=== PATIENT | female | born 1975 | race Caucasian/White ===

== ENCOUNTER 2016-07-29 10:31 | Emergency (ER) | payer MEDICAID, OTHER ==
[~2016-07-29] VITALS: Ht 157.5 cm; Wt 59.0 kg
[2016-07-29 10:36] VITALS: Ht 157.5 cm; Wt 59.0 kg
[2016-07-29 11:38] LABS: ADD SCAN DIFF NO
[2016-07-29 11:39] LABS: BASOPHILS % 0.4 % (0.0-2.0); EOSINOPHILS # 0.2 10^3/ul (0.0-0.5); EOSINOPHILS % 2.8 % (0.0-7.0); HEMATOCRIT 41.5 % (37.0-47.0); HEMOGLOBIN 13.8 g/dl (12.0-16.0); LYMPHOCYTES # 1.8 10^3/ul (0.8-2.9); LYMPHOCYTES % 24.1 % (15.0-51.0); MEAN CORPUSCULAR HEMOGLOBIN 27.9 pg (29.0-33.0); MEAN CORPUSCULAR HGB CONC 33.3 g/dl (32.0-37.0); MEAN CORPUSCULAR VOLUME 83.8 fl (82.0-101.0); MEAN PLATELET VOLUME 9.8 fl (7.4-10.4); MONOCYTE # 0.3 10^3/ul (0.3-0.9); MONOCYTES % 4.6 % (0.0-11.0); NEUTROPHILS % 67.8 % (39.0-77.0); PLATELET COUNT 227 10^3/UL (140-415); RED BLOOD COUNT 4.95 10^6/ul (4.20-5.40); RED CELL DISTRIBUTION WIDTH 13.2 % (11.5-14.5); WHITE BLOOD COUNT 7.4 10^3/ul (4.8-10.8)
[2016-07-29 11:49] LABS: ADD UMIC YES; URINE BILIRUBIN (Dip) NEGATIVE (NEGATIVE); URINE BLOOD (Dip) 2+ (NEGATIVE); URINE COLOR LT. YELLOW (YELLOW); URINE GLUCOSE (Dip) NEGATIVE (NEGATIVE); URINE KETONES (Dip) NEGATIVE (NEGATIVE); URINE LEUKOCYTE ESTERASE (Dip) NEGATIVE (NEGATIVE); URINE NITRITE (Dip) NEGATIVE (NEGATIVE); URINE TOTAL PROTEIN (Dip) NEGATIVE (NEGATIVE); URINE UROBILINOGEN (Dip) 0.2 E.U./dL (0.1-1.0)
[2016-07-29 12:06] LABS: SQUAMOUS EPITHELIAL CELL,UR OCCASIONAL; URINE RBCS 0-2 /HPF (0)
--- NOTE | 2016-07-29 12:28 | RADRPT ---
PROCEDURE: US OB. CLINICAL INDICATION: Vaginal bleeding in . TECHNIQUE: Transabdominal and endovaginal imaging of the uterus is available for review COMPARISON: None available FINDINGS: No intrauterine is identified. The endometrial stripe is homogeneous and measures 7.4 mm in thickness. There is trace free fluid within the lower uterine segment. The uterus is otherwise un remarkable. The ovaries are not visualized. No adnexal mass is identified. No free fluid is noted within the pelvis. IMPRESSION: No intrauterine identified. There are no adnexal masses. Small free fluid is noted withi n the pelvis. Correlation with serial beta HCGs and repeat pelvic ultrasound as clinically indicate d, is recommended, as ectopic is not excluded on this examination. RPTAT: HH .Lakeshia Roberts MD, Date Time Electronically viewed and signed by .Lakeshia Roberts MD, on 07/29/2016 12:28 .G/
--- NOTE | 2016-07-29 12:44 | ERD ---
ER Documentation Chief Complaint Date/Time DATE: 07/29/16 TIME: 12:44 Chief Complaint VAGINAL BLEEDING,7 WEEKS ,SLIGHT PELVIC PAIN HPI This is a 41-year-old female A3 (2 miscarriages and 1 elective ) presents to the emergency department stating that she thinks she is about 7 weeks complaining of light vaginal bleeding for the past 6 days. Patient denies any pelvic pain at this moment she states that she does have mild cramping earlier. Patient states that she checked 2 days ago with a urine test is positive. She thinks she is 7 weeks since her last menstrual period was June 13, 2016 Patient denies any nausea, vomiting, diarrhea, fevers. Patient states that she has not been using pads since it is very light ROS All systems reviewed and are negative except as per history of present illness. Allergies Allergies: Coded Allergies: No Known Allergy (Unverified , 07/29/16) PMhx/Soc History of Surgery: No Anesthesia Reaction: No Hx Neurological Disorder: No Hx Respiratory Disorders: No Hx Cardiac Disorders: No Hx Psychiatric Problems: No Hx Miscellaneous Medical Probl: Yes (MISCARRIAGE X 2 ) Hx Alcohol Use: No Hx Substance Use: No Hx Tobacco Use: No Smoking Status: Never smoker Physical Exam Vitals Vital Signs Date Time Temp Pulse Resp B/P Pulse Ox O2 Delivery O2 Flow Rate FiO2 07/29/16 13:01 98.5 71 18 128/68 99 Room Air 07/29/16 10:36 99.1 115 18 141/80 98 Physical Exam General: well-developed/well-nourished, in no apparent distress, non-toxic appearing HENT: NC/AT, bilateral tympanic membrane is normal with good cone of light, nares patent, oropharynx clear without exudates Eyes: Conjunctiva normal, PERRLA, EOMI Neck: Supple, no lymphadenopathy Pulm: CTA bilaterally, no rales, rhonchi, or wheezing heard CV: Normal S1S2 GI: Soft, non-distended, normal bowel sounds, non-tender, negative rosvings, negative barboza's Back: No midline tenderness, no masses, No CVAT Ext: No clubbing, cyanosis, or edema Neuro: Alert and Orientated, gait normal Skin: Intact, normal turgor Psych: Normal mood and mentation Result Diagram: 07/29/16 1130 Results 24 hrs Laboratory Tests Test 07/29/16 11:20 07/29/16 11:30 Urine Color LT. YELLOW Urine Clarity CLEAR Urine pH 5.5 Urine Specific Bowie <=1.005 Urine Ketones NEGATIVE Urine Nitrite NEGATIVE Urine Bilirubin NEGATIVE Urine Urobilinogen 0.2 E.U./dL Urine Leukocyte Esterase NEGATIVE Urine Microscopic RBC 0-2/HPF Urine Microscopic WBC NONE SEEN/HPF Urine Squamous Epithelial Cells OCCASIONAL Urine Hemoglobin 2+ Urine Glucose NEGATIVE% Urine Total Protein NEGATIVE White Blood Count 7.410^3/ul Red Blood Count 4.9510^6/ul Hemoglobin 13.8g/dl Hematocrit 41.5% Mean Corpuscular Volume 83.8fl Mean Corpuscular Hemoglobin 27.9pg Mean Corpuscular Hemoglobin Concent 33.3g/dl Red Cell Distribution Width 13.2% Platelet Count 76430^3/UL Mean Platelet Volume 9.8fl Neutrophils % 67.8% Lymphocytes % 24.1% Monocytes % 4.6% Eosinophils % 2.8% Basophils % 0.4% Nucleated Red Blood Cells % 0.0/100WBC Neutrophils # 5.010^3/ul Lymphocytes # 1.810^3/ul Monocytes # 0.310^3/ul Eosinophils # 0.210^3/ul Basophils # 0.010^3/ul Nucleated Red Blood Cells # 0.010^3/ul Beta HCG, Quantitative 356.4mIU/ml Procedures/MDM This is a 41-year-old female A3 (2 miscarriages and 1 elective ) presents to the emergency department stating that she thinks she is about 7 weeks complaining of light vaginal bleeding for the past 6 days. Patient states that she checked 2 days ago with a urine test is positive. She thinks she is 7 weeks since her last menstrual period was June 13, 2016. Lab work was drawn. CBC did not show any evidence of leukocytosis or anemia. UA did not show any evidence of urinary tract infection. Beta hC.4 OB ultrasound: No intrauterine identified. There are no adnexal masses. Small free fluid is noted within the pelvis. Correlation with serial beta HCGs and repeat pelvic ultrasound as clinically indicated, is recommended, as ectopic is not excluded on this examination. Differentials include but not limited to early versus failed versus ectopic versus other. Patient does not have a doctor or an OVEN OPERATOR therefore I have discussed with patient to return in 2 days for repeat ultrasound and beta-hCG levels. Discussed return to the ER for any worsening symptoms. Patient hemodynamically stable for discharge. Departure Diagnosis: Primary Impression: Vaginal bleeding in patient at less than 20 weeks ges... Condition: Stable Patient Instructions: Bleeding During Early Referrals: NO PRIMARY,CARE PHYSICIAN (PCP) Additional Instructions: Return to this facility in 2 DAYS for a follow-up exam.Return sooner if your condition worsens. Return to this facility if you are not improving as expected. CHENCHO HARRIS PA-C Jul 29, 2016 12:44
[2016-07-29 13:01] VITALS: BP 128/68; PULSE 71; RESP 18; TEMP 98.5
== END 2016-07-29 13:02 | disposition home or self-care (01) ==
LOC: FTE 10:31
DX: O20.9 Hemorrhage in early pregnancy, unspecified (principal); R10.2 Pelvic and perineal pain; Z3A.01 Less than 8 weeks gestation of pregnancy
CPT/HCPCS: 36415; 76801; 76817; 81001; 81003; 84702; 85025; 86900; 86901; 87086

== ENCOUNTER 2018-09-23 11:59 | Emergency (ER) | payer MEDICAID, OTHER ==
[~2018-09-23] VITALS: Ht 180.3 cm; Wt 61.6 kg
[2018-09-23 12:19] VITALS: BP 124/72; PULSE 133; RESP 18; Ht 180.3 cm; Wt 61.6 kg
[2018-09-23] MEDS ORDERED: AMOX500C2 PO (13:13)
[2018-09-23] MEDS ORDERED: IBUP-1542 PO (13:13)
[2018-09-23] MEDS ORDERED: IBUPROFEN 800 MG TAB PO ONE (13:30)
--- NOTE | 2018-09-23 13:47 | ERD ---
ER Documentation Chief Complaint Chief Complaint sore throat headache x 3 days HPI Patient is a 43-year-old female with no medical problems who presents with a sore throat. She also had bilateral ear pain. She had headache. This is been there for the past 3 days. She tried Tylenol. She has pain with swallowing. She denies cough. She has had no recent antibiotics. She has not had a period in 2 months and is requesting a regnancy test. Her primary doctor is Dr. Aguilar. ROS All systems reviewed and are negative except as per history of present illness. Medications Home Meds Active Scripts Ibuprofen* (Motrin*) 600 Mg Tab, 600 MG PO Q6H PRN for PAIN AND OR ELEVATED TEMP, #30 TAB Prov:MICKY PLUNKETT MD 09/23/18 Amoxicillin* (Amoxicillin*) 500 Mg Cap, 500 MG PO TID for 7 Days, CAP Prov:MICKY PLUNKETT MD 09/23/18 Allergies Allergies: Coded Allergies: No Known Allergy (Unverified , 07/29/16) PMhx/Soc Medical and Surgical Hx: pt denies Medical Hx, pt denies Surgical Hx History of Surgery: No Anesthesia Reaction: No Hx Neurological Disorder: No Hx Respiratory Disorders: No Hx Cardiac Disorders: No Hx Psychiatric Problems: No Hx Miscellaneous Medical Probl: Yes (MISCARRIAGE X 2 ) Hx Alcohol Use: No Hx Substance Use: No Hx Tobacco Use: No Smoking Status: Never smoker FmHx Family History: No diabetes Physical Exam Vitals Vital Signs Date Temp Pulse Resp B/P (MAP) Pulse Ox O2 O2 Flow FiO2 Time Delivery Rate 09/23/18 38.8 13:22 09/23/18 101.8 133 18 124/72 95 12:19 (89) Physical Exam Const: No acute distress Head: Atraumatic Eyes: Normal Conjunctiva ENT: Erythema to the bilateral tonsils with pus, no stridor, no peritonsillar abscess Neck: Full range of motion. No meningismus. Resp: Clear to auscultation bilaterally Cardio: Regular rate and rhythm, no murmurs Abd: Soft, non tender, non distended. Normal bowel sounds Skin: No petechiae or rashes Back: No midline or flank tenderness Ext: No cyanosis, or edema Neur: Awake and alert Psych: Normal Mood and Affect Results 24 hrs Laboratory Tests Test 09/23/18 13:25 09/23/18 13:28 POC Beta HCG, Qualitative NEGATIVE NEGATIVE Current Medications Medications Dose Sig/Belle Start Time Status Last (Trade) Ordered Route PRN Stop Time Admin Dose Reason Admin Ibuprofen 800 mg ONCE ONCE 09/23/18 DC 09/23/18 (Motrin) PO 13:30 13:22 09/23/18 13:31 Procedures/MDM Patient is a 43-year-old female presents with what appears to be an acute pharyngitis. The patient was given ibuprofen for fever and pain as well as inflammation reduction. She will be treated with 1 week of amoxicillin. test was negative. I doubt peritonsillar abscess, epiglottitis, or retropharyngeal abscess. The patient will be discharged and will need to follow-up with her primary doctor within 1 week. I doubt sepsis. She can return for any worsening symptoms. Departure Diagnosis: Primary Impression: Pharyngitis Pharyngitis/tonsillitis etiology: unspecified etiology Qualified Codes: J02.9 - Acute pharyngitis, unspecified Additional Impression: Sore throat Condition: Fair Patient Instructions: Pharyngitis, Strep (Presumed) Additional Instructions: Call your primary care doctor TOMORROW for an appointment during the next 1 WEEK.Tell the hospice patient care secretary that you were referred from this facility.See the doctor sooner or return here if your condition worsens before your appointment time. MICKY PLUNKETT MD Sep 23, 2018 13:47
== END 2018-09-23 14:17 | disposition home or self-care (01) ==
LOC: FTE 11:59
DX: J02.9 Acute pharyngitis, unspecified (principal); Z32.02 Encounter for pregnancy test, result negative
CPT/HCPCS: 81025; Z7502; Z7610; 99283